=== PATIENT | female | born 1980 | race Caucasian/White ===

== ENCOUNTER 2017-12-26 10:08 | Outpatient (CLI) | payer OTHER | END 2017-12-26 10:10 | LOC: LAB 10:08 | PROVIDERS: ATTEND Family Medicine | DX: E03.9 Hypothyroidism, unspecified (principal) | CPT/HCPCS: 36415; 84443 ==

== ENCOUNTER 2018-02-26 09:29 | Outpatient (CLI) | payer OTHER | END 2018-02-26 09:30 | LOC: LAB 09:29 | PROVIDERS: ATTEND Family Medicine | DX: E03.9 Hypothyroidism, unspecified (principal) | CPT/HCPCS: 36415; 84443 ==